=== PATIENT | male | born 1985 | race Caucasian/White ===

== ENCOUNTER 2016-11-10 21:36 | Emergency (ER) | payer BC, OTHER ==
[2016-11-10 22:11] VITALS: BP 123/83
[2016-11-10] MEDS ORDERED: Ketorolac 60 MG/2 ML SDV IM ONE (22:35)
[2016-11-10] MEDS ORDERED: cefTRIAXone 1 GM, Lidocaine 1% 2.1 ML IM SCH ×2 (22:45)
--- NOTE | 2016-11-10 23:06 | EDM.PDOC ---
ED HPI GENERAL MEDICAL PROBLEM - General Chief Complaint: ENT Problem Stated Complaint: TOOTHACHE Time Seen by Provider: 11/10/16 22:26 Source of Information: Reports: Patient History Limitations: Reports: No Limitations - History of Present Illness INITIAL COMMENTS - FREE TEXT/NARRATIVE: 31-year-old male presents for evaluation treatment of dental pain. Patient reports that the pain began on Thursday night. He reports pain to the left upper dental area. Reports pain radiating into his ear. He reports bad taste in his mouth. He felt that he may have had a fever today the does not thermometer take his temperature. Denies any nausea or vomiting. Patient's utilizes [facility] services. [facility] but he can no longer take the pain tonight. He has not been dental since 2010. His plan is to see the [facility] tomorrow for his dental pain. Left Upper Oral/Mouth Pain Score (Numeric/FACES): 8 - Related Data Allergies Allergy/AdvReac Type Severity Reaction Status Date / Time No Known Allergies Allergy Verified 11/10/16 22:11 Home Meds: Home Meds Ibuprofen 800 mg PO Q6HR #2 tablet 11/10/16 [Rx] buPROPion [Wellbutrin XL] 150 mg PO BID 11/10/16 [History] busPIRone [Buspar] 10 mg PO BID PRN 11/10/16 [History] Past Medical History - Past Health History Medical/Surgical History: Denies Medical/Surgical History Psychiatric History: Reports: Anxiety Social & Family History - Family History Family Medical History: Noncontributory Oncologic: Reports: Bone, Brain, Breast, Leukemia - Tobacco Use Smoking Status *Q: Current Every Day Smoker Years of Tobacco use: 10 Packs/Tins Daily: 0.7 - Caffeine Use Caffeine Use: Reports: Coffee - Recreational Drug Use Recreational Drug Use: No ED ROS ENT - Review of Systems Review Of Systems: See Below Constitutional: Reports: Chills. Denies: Fever HEENT: Reports: Dental Pain (left upper), Ear Pain (left), Other (reports a bad taste to the [facility]) GI/Abdominal: Denies: Nausea, Vomiting ED EXAM, ENT - Physical Exam Exam: See Below Exam Limited By: No Limitations General Appearance: Alert, WD/WN, No Apparent Distress Ears: Normal External Exam, Normal Canal, Hearing Grossly Normal Nose: Normal Inspection Mouth/Throat: Normal Inspection, Normal Gums, Normal Lips, Normal Oropharynx, Dental Abcess (#16), Dental Tenderness (#16), Other (Dentition is poor. Multiple caries present. Multiple fillings present.) Neck: Normal Inspection. No: Lymphadenopathy (L), Lymphadenopathy (R) Respiratory/Chest: No Respiratory Distress, Lungs Clear, Normal Breath Sounds Cardiovascular: Normal Peripheral Pulses, Regular Rate, Rhythm, No Murmur Neurological: Alert, Oriented, Normal Cognition Psychiatric: Normal Affect, Normal Mood Skin: Warm, Dry, Normal Color Course - Vital Signs Last Recorded V/S: Last Vital Signs Temp 36.4 C 11/10/16 22:07 Pulse 76 11/10/16 22:07 Resp 16 11/10/16 22:07 BP 123/83 11/10/16 22:07 Pulse Ox 99 11/10/16 22:07 - Orders/Labs/Meds Meds: Medications Discontinued Medications Generic Name Dose Route Start Last Admin Trade Name Todq PRN Reason Stop Dose Admin Ceftriaxone Sodium 1 gm/ 0 gm 11/10/16 22:45 11/10/16 22:54 Lidocaine HCl 2.1 ml IM 1 inj Q24H MOE Administration Ibuprofen Confirm 11/10/16 23:14 Motrin Administered 11/10/16 23:15 Dose 1,600 mg .ROUTE .STK-MED ONE Ketorolac Tromethamine 60 mg 11/10/16 22:35 11/10/16 22:54 Toradol IM 11/10/16 22:36 60 mg ONETIME ONE Administration - Re-Assessments/Exams Free Text/Narrative Re-Assessment/Exam: 11/10/16 22:39 [facility]. He is requesting something to help with pain to get him through tonight and he will [facility] tomorrow. He can then get prescriptions for free. What we decided to do was give a shot of Rocephin as he does have a dental abscess. He will then get further [facility] as needed [facility] the [facility]. I will also give him a shot of Toradol for pain relief. Patient declined any narcotic pain medication. Will send him home with ibuprofen 800 mg. Discharge instructions as documented. Departure - Departure Time of Disposition: 23:07 Disposition: Home, Self-Care 01 Condition: fair Clinical Impression: Dental abscess - Discharge Information Prescriptions: Ibuprofen 800 mg PO Q6HR #2 tablet Instructions: Dental Abscess, [id number] Referrals: Triny Bills DO [Primary Care Provider] - Forms: ED Department Discharge Additional Instructions: [facility]. Take the ibuprofen 800mg every 6 hours as needed for severe pain. Please return to the ER if your symptoms change or worsen
[2016-11-10] MEDS ORDERED: Ibuprofen 800 MG Tab ONE (23:14)
== END 2016-11-10 23:15 | disposition home or self-care (01) ==
LOC: JD.ED 21:36
DX: K04.7 Periapical abscess without sinus (principal); F41.9 Anxiety disorder, unspecified; F17.210 Nicotine dependence, cigarettes, uncomplicated
CPT/HCPCS: 96372; 99283; J0696; J1885